=== PATIENT | female | born 1960 ===

== ENCOUNTER 2022-05-07 16:16 | Emergency (ER) | payer SELFPAY ==
[2022-05-07 16:31] VITALS: BP 132/70
--- NOTE | 2022-05-07 21:17 | Emergency Department Report ---
ED Extremity Problem HPI - General Chief complaint: Extremity Problem,Nontraumatic Stated complaint: FOOT PAIN BILATERAL Time Seen by Provider: 05/07/22 20:49 Source: patient, EMS Mode of arrival: Stretcher Limitations: No Limitations - History of Present Illness Initial comments: 61-year-old female with bilateral foot pain and swelling x1 week. Patient reports that there were some "bugs coming out of her feet". Patient is homeless, spends long time walking on her foot, does not have good supportive shoes. Otherwise no fever chills, no chest pain no shortness of breath, no weakness numbness tingling or paresthesia of the extremity. With a 10 point ROS negative except for those identified in HPI MD Complaint: extremity pain, extremity swelling Severity scale (0 -10): 8 - Related Data Previous Rx's Medication Instructions Recorded Last Taken Type Clotrimazole/Betamethasone Dip 1 applicatio TP BID #1 tube 05/07/22 Unknown Rx [Lotrisone Cream] Allergies Allergy/AdvReac Type Severity Reaction Status Date / Time No Known Allergies Allergy Unverified 05/07/22 16:31 ED Review of Systems ROS: Stated complaint: FOOT PAIN BILATERAL Other details as noted in HPI Constitutional: see HPI Eyes: as per HPI ENT: as per HPI Respiratory: see HPI Cardiovascular: edema. denies: chest pain, dyspnea on exertion Endocrine: denies: flushing, intolerance to cold, intolerance to heat Gastrointestinal: as per HPI. denies: abdominal pain, nausea Musculoskeletal: denies: joint swelling, arthralgia, myalgia Skin: rash, pruritus Neurological: denies: headache, weakness Psychiatric: denies: homicidal thoughts, suicidal thoughts ED Past Medical Hx - Past Medical History Previous Medical History?: No - Medications Home Medications: Home Medications Medication Instructions Recorded Confirmed Last Taken Type Clotrimazole/Betamethasone Dip 1 applicatio TP BID #1 tube 05/07/22 Unknown Rx [Lotrisone Cream] ED Physical Exam - General Limitations: No Limitations General appearance: alert, in no apparent distress, other (Unkept, ambulating steadily without assistance.) - Head Head exam: Present: atraumatic - Eye Eye exam: Present: normal appearance Pupils: Present: normal accommodation - ENT ENT exam: Present: normal exam, normal orophraynx - Neck Neck exam: Present: normal inspection - Respiratory Respiratory exam: Present: normal lung sounds bilaterally - Cardiovascular Cardiovascular Exam: Present: regular rate - GI/Abdominal GI/Abdominal exam: Present: soft. Absent: tenderness, guarding - Extremities Exam Extremities exam: Present: pedal edema, other (Bilateral feet edema,, chronic fungus nails, excoriation of the skin at the plantar surface of the foot.). Absent: tenderness - Back Exam Back exam: Present: normal inspection, full ROM - Neurological Exam Neurological exam: Present: alert, oriented X3, CN II-XII intact, normal gait. Absent: motor sensory deficit - Skin Skin exam: Present: warm, dry ED Course Vital Signs 05/07/22 16:28 Temperature 97.6 F Pulse Rate 88 Respiratory 18 Rate Blood Pressure 132/70 [Left] O2 Sat by Pulse 98 Oximetry ED Medical Decision Making - Medical Decision Making Bilateral foot pain and swelling, most secondary to walking in her foot with none good supportive soles. Patient also reports bugs coming from her feet which I did not see on examination. Otherwise no other medical emergency, treat her symptoms, provided her with supplies to wash her feet, socks as well. As well as referral to the [facility]. Patient remained stable nontoxic-appearing, afebrile, ambulating steadily without assistance. Gone over ED findings with patient as well as plan for follow-up. Also discussed return precautions with patient, all questions and concerns addressed. Patient is stable to be discharged follow-up outpatient. Audio voice dictation device used, hence the chart might contain some dictation errors, mispronunciations, wrong spelling and wrong verbiage. Critical care attestation.: If time is entered above; I have spent that time in minutes in the direct care of this critically ill patient, excluding procedure time. ED Disposition Clinical Impression: Fungal infection of foot, Pain in both feet Disposition: HOME / SELF CARE / HOMELESS Is pt being admited?: No Does the pt Need Aspirin: No Condition: Stable Instructions: Athlete's Foot, [id number] Prescriptions: Clotrimazole/Betamethasone Dip [Lotrisone Cream] 1 applicatio TP BID #1 tube
[2022-05-07] MEDS ORDERED: IBUPROFEN 800 MG TAB PO ONE (21:21)
== END 2022-05-08 10:50 | disposition home or self-care (01) ==
LOC: ED 16:16
DX: L08.9 Local infection of the skin and subcutaneous tissue, unspecified (principal); M79.672 Pain in left foot; M79.671 Pain in right foot; Z59.00 Homelessness unspecified
CPT/HCPCS: 99283